=== PATIENT | male | born 1970 | race Caucasian/White ===

== ENCOUNTER 2019-02-13 08:00 | Inpatient (IN) ==
[2019-02-13] MEDS ORDERED: DEXTROSE 50% 25 GM/50 ML VIAL IV PRN (14:29)
[2019-02-13] MEDS ORDERED: GLUCAGON 1 MG VIAL IM PRN ×2 (14:29)
[2019-02-13] MEDS ORDERED: DEXTROSE 10% 250 ML BAG IV PRN (14:29)
[2019-02-13] MEDS ORDERED: ASPIRIN CHEW 81 MG TABLET PO ONE (14:40)
[2019-02-13] MEDS ORDERED: CLORAZEPATE 3.75 MG TABLET PO PRN (14:42)
[2019-02-13] MEDS ORDERED: ZALEPLON 5 MG CAPSULE PO PRN (14:42)
[2019-02-13] MEDS: ATORVASTATIN 80 MG TABLET PO SCH (21:57)
[2019-02-13] MEDS: carvediloL 3.125 MG TABLET PO SCH (21:57)
[2019-02-13] MEDS ORDERED: oxyCODONE/ACETAMINOPHEN 5-325 MG TABLET PO PRN (22:08)
[2019-02-13] MEDS: ACETAMINOPHEN 325 MG TABLET PO PRN (22:30)
[2019-02-14 05:06] LABS: Basophils # 0.1 10*3/uL (0.0-0.2); Basophils % 1.1 % (0.0-0.8); Eosinophils # 0.2 10*3/uL (0.0-0.87); Eosinophils % 3.4 % (0.00-10.9); Hematocrit 42.5 VOL% (42.0-52.0); Hemoglobin 14.3 GM/DL (14.0-18.0); Immature Granulocytes % 0.3 %; Immature Granulocytes Absolute 0.02 #; Lymphocytes # 2.2 10*3/uL (1.4-4.0); Lymphocytes % 31.9 % (21.2-54.2); Mean Corpuscular HGB Conc 33.6 GM/DL (32-36); Mean Corpuscular Volume 89.5 FL (87-102); Mean Platelet Volume 9.9 FL (9.6-12.0); Neutrophils % 51.3 % (38.7-73.9); Platelet Count 229 T/CUMM (130-400); Red Blood Count 4.75 MC/CUMM (3.8-5.5); Red Cell Distribution Width 12.1 % (9.3-17.3)
[2019-02-14 05:09] LABS: ABG Base Excess -0.3 MMOL/L (-2.5-2.5); ABG HCO3 24.1 MMOL/L (20-26); ABG Oxygen Saturation 91.9 % (95-100); ABG PCO2 38.9 MM HG (35-48); ABG TCO2 25.3 MMOL/L (23-27); Allen Test Positive; Pt O2 Delivery Device Room Air
[2019-02-14 05:49] LABS: Albumin 3.6 G/DL (3.4-5.0); Bilirubin,Total 0.9 MG/DL (0.2-1.0); Calcium 9.2 MG/DL (8.5-10.1); Total Protein 6.6 G/DL (6.4-8.3)
[2019-02-14] MEDS: ISOSORBIDE MONONITRATE 30 MG TABLET PO SCH (09:31)
[2019-02-14] MEDS: carvediloL 3.125 MG TABLET PO SCH ×2 (09:31→16:54)
[2019-02-14] MEDS: ACETAMINOPHEN 325 MG TABLET PO PRN (13:55)
[2019-02-14] MEDS: ATORVASTATIN 80 MG TABLET PO SCH (21:27)
[2019-02-15] MEDS: carvediloL 3.125 MG TABLET PO SCH ×2 (08:31→16:50)
[2019-02-15] MEDS: ISOSORBIDE MONONITRATE 30 MG TABLET PO SCH (08:31)
[2019-02-15] MEDS: ATORVASTATIN 80 MG TABLET PO SCH (21:34)
[2019-02-16] MEDS: ISOSORBIDE MONONITRATE 30 MG TABLET PO SCH (08:41)
[2019-02-16] MEDS: carvediloL 3.125 MG TABLET PO SCH ×2 (08:41→17:10)
[2019-02-16] MEDS: ATORVASTATIN 80 MG TABLET PO SCH (20:50)
[2019-02-17] MEDS ORDERED: FAMOTIDINE 20 MG TABLET PO ONE (06:00)
[2019-02-17] MEDS: carvediloL 3.125 MG TABLET PO SCH ×2 (09:42→17:20)
[2019-02-17] MEDS: CHLORHEXIDINE 0.12% ORAL RINSE 60 ML BOTTLE SWISH/SPIT SCH ×2 (09:42→21:52)
[2019-02-17] MEDS: ISOSORBIDE MONONITRATE 30 MG TABLET PO SCH (09:42)
[2019-02-17] MEDS: CHLORHEXIDINE 4% SOLN 118 ML BOTTLE TOP SCH ×2 (14:47→21:46)
[2019-02-17] MEDS ORDERED: ALPRAZolam 0.25 MG TABLET PO PRN (16:25)
[2019-02-17] MEDS: ATORVASTATIN 80 MG TABLET PO SCH (21:46)
[2019-02-17] MEDS: ACETAMINOPHEN 325 MG TABLET PO PRN (23:00)
[2019-02-18] MEDS ORDERED: VANCOMYCIN 500 MG VIAL ONE (04:24)
[2019-02-18] MEDS ORDERED: PAPAVERINE 60 MG/2 ML VIAL ONE (04:24)
[2019-02-18] MEDS ORDERED: VANCOMYCIN 1,000 MG VIAL ONE (04:24)
[2019-02-18] MEDS: CHLORHEXIDINE 4% SOLN 118 ML BOTTLE TOP SCH (04:30)
[2019-02-18] MEDS ORDERED: CALCIUM CHLORIDE 1,000 MG/10 ML VIAL IV ONE (05:50)
[2019-02-18] MEDS ORDERED: MIDAZOLAM 10 MG/2 ML VIAL ONE (05:50)
[2019-02-18] MEDS ORDERED: SUFentanil 250 MCG/5 ML AMP ONE (05:50)
[2019-02-18] MEDS ORDERED: AMINOCAPROIC ACID 5,000 MG/20 ML VIAL ONE (05:51)
[2019-02-18] MEDS ORDERED: VECURONIUM 10 MG VIAL IV ONE (05:51)
[2019-02-18] MEDS ORDERED: MINERAL OIL/PETROLATUM OPH OINT 3.5 GM TUBE ONE (05:51)
[2019-02-18] MEDS ORDERED: DIAZEPAM 5 MG TABLET PO ONE (06:00)
[2019-02-18] MEDS ORDERED: CEFUROXIME INJ 1,500 MG in SYRINGE 1 EACH IV ONE (06:30)
[2019-02-18] MEDS ORDERED: NITROPRUSSIDE 50 MG/2 ML VIAL ONE (07:29)
[2019-02-18] MEDS ORDERED: SODIUM BICARBONATE 50 MEQ/50 ML VIAL IV ONE ×2 (07:32→11:24)
[2019-02-18] MEDS ORDERED: CALCIUM CHLORIDE 1,000 MG/10 ML SYRINGE IV ONE (07:32)
[2019-02-18] MEDS ORDERED: ATROPINE 1 MG/10 ML SYRINGE ONE (07:33)
[2019-02-18] MEDS ORDERED: EPINEPHrine 1 MG/10 ML SYRINGE ONE (07:33)
[2019-02-18] MEDS ORDERED: LIDOCAINE 100 MG/5 ML SYRINGE ONE (07:33)
[2019-02-18] MEDS ORDERED: PHENYLEPHRINE DRIP 40 MG/250 ML PREMIX IV ONE (07:35)
[2019-02-18 07:42] LABS: ABG Base Excess -1.6 MMOL/L (-2.5-2.5); ABG HCO3 22.5 MMOL/L (20-26); ABG Oxygen Saturation 99.2 % (95-100); ABG PCO2 36.3 MM HG (35-48); ABG PO2 438.9 MM HG (80-95); ABG TCO2 23.6 MMOL/L (23-27); Glucose Heart Surgery 108 MG/DL (74-106); Hemoglobin Heart Surgery 14.6 G/DL (14.0-18.0); Ionized Calcium Arterial 1.18 MMOL/L (1.21-1.46); PCO2 Patient Temp Arterial 36.3 MMHG; PO2 Patient Temp Arterial 438.9 MM HG; Patient Temperature 37 CELCIUS; Sodium Heart/CVR 139 MMOL/L (135-145)
[2019-02-18] MEDS ORDERED: POTASSIUM CHLORIDE RIDER 100 ML IV ONE (08:14)
[2019-02-18] MEDS ORDERED: ALBUMIN 5% 12.5 GM/250 ML VIAL IV ONE (08:14)
[2019-02-18 08:16] LABS: Apearance,Urine CLEAR (Clear); Bacteria,Urine Occasional /HPF (Few); Bilirubin,Urine Negative (Negative); Blood, Urine Negative (Negative); Glucose,Urine (UA) Negative (Negative); Ketones,Urine Negative (Negative); Mucus,Urine Occasional /LPF (Occasional); Nitrite,Urine Negative (Negative); Protein,Urine Negative; RBC,Urine 2 /HPF (0-4); Squamous Epithelial Cell,Urine Occasional /HPF (0-10); Urine Color Yellow (Yellow); Urine Specific Gravity 1.025 (1.001-1.035); Urine Urobilinogen < 2.0 EU/DL (0.2-1.0); WBC,Urine <1 /HPF (0-6)
[2019-02-18 09:12] LABS: Hematocrit Heart Surgery 30.2 PERCENT (42-52); Hemoglobin Heart Surgery 9.8 G/DL (14.0-18.0); PCO2 Patient Temp Venous 43.4 MM HG; PH Patient Temp Venous 7.355; PO2 Patient Temp Venous 46.1 MM HG; Potassium Heart/CVR 5.8 MMOL/L (3.5-5.1); VBG Base Excess -1.2 MEQ/L (0-4); VBG HCO3 23.2 MEQ/L (24-28); VBG Oxygen Saturation 86.6 %; VBG PCO2 47.9 MMHG (41-51); VBG PH 7.327; VBG PO2 52.8 MMHG (17-40)
[2019-02-18 09:43] LABS: Hematocrit Heart Surgery 35.4 PERCENT (42-52); Hemoglobin Heart Surgery 11.5 G/DL (14.0-18.0); PCO2 Patient Temp Venous 35.9 MM HG; PH Patient Temp Venous 7.424; PO2 Patient Temp Venous 39.1 MM HG; Potassium Heart/CVR 5.6 MMOL/L (3.5-5.1); VBG Base Excess -0.6 MEQ/L (0-4); VBG HCO3 23.7 MEQ/L (24-28); VBG Oxygen Saturation 84.8 %; VBG PCO2 41.5 MMHG (41-51); VBG PH 7.38; VBG PO2 48.1 MMHG (17-40)
[2019-02-18 10:16] LABS: Hematocrit Heart Surgery 38.7 PERCENT (42-52); Hemoglobin Heart Surgery 12.6 G/DL (14.0-18.0); PCO2 Patient Temp Venous 32.8 MM HG; PH Patient Temp Venous 7.456; PO2 Patient Temp Venous 37.2 MM HG; Potassium Heart/CVR 5.2 MMOL/L (3.5-5.1); VBG Base Excess -0.1 MEQ/L (0-4); VBG Oxygen Saturation 83.8 %; VBG PH 7.412; VBG PO2 45.8 MMHG (17-40)
[2019-02-18 10:47] LABS: Hemoglobin Heart Surgery 12.4 G/DL (14.0-18.0); PCO2 Patient Temp Venous 35.5 MM HG; PH Patient Temp Venous 7.423; PO2 Patient Temp Venous 46.3 MM HG; Potassium Heart/CVR 4.7 MMOL/L (3.5-5.1); VBG Base Excess -1.3 MEQ/L (0-4); VBG HCO3 22.7 MEQ/L (24-28); VBG Oxygen Saturation 83.1 %; VBG PCO2 35.5 MMHG (41-51); VBG PH 7.423; VBG PO2 46.3 MMHG (17-40)
[2019-02-18] MEDS ORDERED: MANNITOL 100 GM/500 ML BAG IV ONE (11:23)
[2019-02-18] MEDS ORDERED: PROTAMINE SULFATE 250 MG/25 ML VIAL IV ONE (11:24)
[2019-02-18] MEDS ORDERED: MAGNESIUM SULFATE 5 GM/10 ML VIAL IV ONE (11:24)
[2019-02-18] MEDS ORDERED: ALBUMIN 25% 25 GM/100 ML VIAL IV ONE (11:24)
[2019-02-18] MEDS ORDERED: methylPREDNISolone SOD SUC 1,000 MG/8 ML VIAL ONE (11:24)
[2019-02-18] MEDS ORDERED: LIDOCAINE 2% 5 ML VIAL ONE ×2 (11:24→13:15)
[2019-02-18] MEDS ORDERED: FUROSEMIDE 20 MG/2 ML VIAL ONE (11:24)
[2019-02-18] MEDS ORDERED: DEXTROSE 5% KCL 20 MEQ 20 MEQ/1,000 ML BAG IV ONE (11:24)
[2019-02-18] MEDS ORDERED: HEPARIN 10,000 UNIT/10 ML VIAL ONE (11:24)
[2019-02-18] MEDS ORDERED: PROTAMINE SULFATE 50 MG/5 ML VIAL IV ONE (11:25)
[2019-02-18 11:41] LABS: ABG Base Excess -1.7 MMOL/L (-2.5-2.5); ABG Oxygen Saturation 98.9 % (95-100); ABG PCO2 33.9 MM HG (35-48); Glucose Heart Surgery 140 MG/DL (74-106); Hemoglobin Heart Surgery 12.1 G/DL (14.0-18.0); Ionized Calcium Arterial 1.28 MMOL/L (1.21-1.46); PCO2 Patient Temp Arterial 33.9 MMHG; Patient Temperature 37 CELCIUS; Potassium Heart/CVR 3.6 MMOL/L (3.5-5.1); Sodium Heart/CVR 138 MMOL/L (135-145)
[2019-02-18] MEDS ORDERED: MORPHINE 10 MG/1 ML VIAL IV PRN (12:31)
[2019-02-18] MEDS ORDERED: ACETAMINOPHEN 650 MG SUPP RECTAL PRN (12:31)
[2019-02-18] MEDS ORDERED: MAGNESIUM SULF RIDER 4 GM in PREMIX 1 EACH IV PRN (12:31)
[2019-02-18] MEDS ORDERED: LACTATED RINGERS 250 ML IV PRN (12:31)
[2019-02-18] MEDS ORDERED: VECURONIUM 10 MG VIAL IV PRN ×2 (12:31)
[2019-02-18] MEDS ORDERED: SODIUM CHLORIDE 0.45% 1,000 ML IV SCH ×2 (12:31)
[2019-02-18] MEDS ORDERED: PHENYLEPHRINE DRIP 40 MG/250 ML PREMIX IV PRN (12:31)
[2019-02-18] MEDS ORDERED: ONDANSETRON 4 MG/2 ML VIAL IV PRN (12:31)
[2019-02-18] MEDS ORDERED: MAGNESIUM SULF RIDER 2 GM in PREMIX 1 EACH IV PRN (12:31)
[2019-02-18] MEDS ORDERED: NITROPRUSSIDE 100 MG in DEXTROSE 5% 250 ML IV PRN (12:31)
[2019-02-18] MEDS ORDERED: CALCIUM CHLORIDE 1,000 MG/10 ML SYRINGE IV PRN (12:31)
[2019-02-18] MEDS ORDERED: DEXTROSE 10% 250 ML BAG IV PRN ×2 (12:31)
[2019-02-18] MEDS ORDERED: MORPHINE 4 MG/1 ML VIAL IV PRN (12:31)
[2019-02-18] MEDS ORDERED: INSULIN REGULAR 100 UNIT/ML IV ONE (12:31)
[2019-02-18] MEDS: LACTATED RINGERS 1,000 ML IV PRN ×3 (12:35→15:34)
[2019-02-18 12:50] LABS: ABG Base Excess -2.9 MMOL/L (-2.5-2.5); ABG HCO3 22.3 MMOL/L (20-26); ABG Oxygen Saturation 95.9 % (95-100); ABG PCO2 40.3 MM HG (35-48); ABG PH 7.361 (7.35-7.45); ABG PO2 88.6 MM HG (80-95); ABG TCO2 23.5 MMOL/L (23-27); Glucose Heart Surgery 114 MG/DL (74-106); Hemoglobin Heart Surgery 12.5 G/DL (14.0-18.0); Potassium Heart/CVR 3.5 MMOL/L (3.5-5.1)
[2019-02-18 12:51] LABS: Basophils # 0.1 10*3/uL (0.0-0.2); Basophils % 0.3 % (0.0-0.8); Eosinophils # 0.1 10*3/uL (0.0-0.87); Eosinophils % 0.4 % (0.00-10.9); Hematocrit 35.1 VOL% (42.0-52.0); Hemoglobin 11.9 GM/DL (14.0-18.0); Immature Granulocytes % 0.9 %; Immature Granulocytes Absolute 0.14 #; Lymphocytes # 1.7 10*3/uL (1.4-4.0); Lymphocytes % 10.4 % (21.2-54.2); Mean Corpuscular HGB Conc 33.9 GM/DL (32-36); Mean Corpuscular Volume 90.5 FL (87-102); Mean Platelet Volume 10.2 FL (9.6-12.0); Monocytes % 7.4 % (1.7-12.7); Neutrophils % 80.6 % (38.7-73.9); Platelet Count 182 T/CUMM (130-400); Red Blood Count 3.88 MC/CUMM (3.8-5.5); Red Cell Distribution Width 12.1 % (9.3-17.3); White Blood Count 15.9 T/CUMM (4-12)
[2019-02-18] MEDS: KETOROLAC 30 MG/1 ML VIAL IV SCH ×2 (12:58→18:24)
[2019-02-18 13:00] LABS: INR 1.2; PT Patient Result 12.7 SECS (9.6-12.2); Partial Thromboplastin Time 25.9 SECS (20.8-36.0)
[2019-02-18] MEDS: INSULIN REGULAR DRIP 100 ML IV SCH ×2 (13:07→16:57)
[2019-02-18] MEDS: POTASSIUM CHLORIDE RIDER 20 MEQ in PREMIX 1 EACH IV PRN ×3 (13:11→21:52)
[2019-02-18] MEDS ORDERED: SEVOFLURANE 1 UNIT/15 MINUTE INH ONE (13:15)
[2019-02-18] MEDS ORDERED: AMIODARONE 150 MG/3 ML VIAL ONE (13:15)
[2019-02-18] MEDS ORDERED: PHENYLEPHRINE DRIP 20 MG/250 ML PREMIX IV ONE (13:15)
[2019-02-18] MEDS ORDERED: HEPARIN/NACL 0.9% 2 UNITS/ML 500 ML IV ONE (13:15)
[2019-02-18] MEDS ORDERED: SODIUM CHLORIDE 0.9% 1,000 ML IV ONE (13:16)
[2019-02-18] MEDS ORDERED: ETOMIDATE 40 MG/20 ML VIAL IV ONE (13:16)
[2019-02-18] MEDS ORDERED: SODIUM CHLORIDE 0.9% 250 ML IV ONE (13:16)
[2019-02-18] MEDS ORDERED: ESMOLOL 100 MG/10 ML VIAL IV ONE (13:16)
[2019-02-18] MEDS ORDERED: NITROGLYCERIN DRIP 50 MG/250 ML BOTTLE IV ONE (13:16)
[2019-02-18 13:34] LABS: Albumin 3.2 G/DL (3.4-5.0); Bilirubin,Total 0.6 MG/DL (0.2-1.0); Osmolality,Calculated 293.4 MOS/KG (273-304); Total Protein 5.1 G/DL (6.4-8.3)
[2019-02-18 13:36] LABS: CKMB % 6.4 %
[2019-02-18 13:51] LABS: Troponin I 7.59 NG/ML (0.00-0.045)
[2019-02-18] MEDS: POTASSIUM CHLORIDE RIDER 10 MEQ in PREMIX 1 EACH IV PRN (13:52)
[2019-02-18] MEDS: ALBUMIN 5% 12.5 GM in PREMIX 1 EACH IV PRN ×5 (14:39→18:01)
[2019-02-18 15:03] LABS: ABG Base Excess -1.9 MMOL/L (-2.5-2.5); ABG HCO3 22.7 MMOL/L (20-26); ABG Oxygen Saturation 94.9 % (95-100); ABG PCO2 48.8 MM HG (35-48); ABG PH 7.314 (7.35-7.45); ABG TCO2 22.2 MMOL/L (23-27); Glucose Heart Surgery 166 MG/DL (74-106); Hematocrit Heart Surgery 36.9 PERCENT (42-52); Potassium Heart/CVR 4.6 MMOL/L (3.5-5.1)
[2019-02-18] MEDS ORDERED: AMIODARONE INJ 50 MG in DEXTROSE 5% 100 ML IV ONE (15:13)
[2019-02-18] MEDS ORDERED: AMIODARONE INJ 450 MG in DEXTROSE 5% 241 ML IV SCH (15:30)
[2019-02-18 16:25] LABS: ABG Base Excess -2.4 MMOL/L (-2.5-2.5); ABG HCO3 22.4 MMOL/L (20-26); ABG Oxygen Saturation 98.3 % (95-100); ABG PCO2 51.1 MM HG (35-48); ABG PH 7.292 (7.35-7.45); ABG TCO2 22.4 MMOL/L (23-27); Glucose Heart Surgery 176 MG/DL (74-106); Hematocrit Heart Surgery 34.8 PERCENT (42-52); Hemoglobin Heart Surgery 11.3 G/DL (14.0-18.0); Potassium Heart/CVR 4.5 MMOL/L (3.5-5.1)
[2019-02-18] MEDS: MIDAZOLAM 2 MG/2 ML VIAL IV PRN ×2 (16:41→18:40)
[2019-02-18 16:54] LABS: ABG Base Excess -2.4 MMOL/L (-2.5-2.5); ABG HCO3 22.4 MMOL/L (20-26); ABG PCO2 46.3 MM HG (35-48); ABG PH 7.321 (7.35-7.45); ABG TCO2 21.5 MMOL/L (23-27); Glucose Heart Surgery 181 MG/DL (74-106); Hemoglobin Heart Surgery 11.7 G/DL (14.0-18.0); Potassium Heart/CVR 4.6 MMOL/L (3.5-5.1)
[2019-02-18] MEDS: INSULIN REGULAR 100 UNIT/ML IV PRN ×2 (16:54→20:14)
[2019-02-18 17:39] LABS: ABG Base Excess -2.2 MMOL/L (-2.5-2.5); ABG HCO3 22.6 MMOL/L (20-26); ABG Oxygen Saturation 99.4 % (95-100); ABG PCO2 41.1 MM HG (35-48); ABG PH 7.358 (7.35-7.45); ABG TCO2 20.8 MMOL/L (23-27); Glucose Heart Surgery 168 MG/DL (74-106); Hematocrit Heart Surgery 34.1 PERCENT (42-52); Potassium Heart/CVR 4.2 MMOL/L (3.5-5.1)
[2019-02-18] MEDS: CEFUROXIME INJ 1,500 MG in SYRINGE 1 EACH IV SCH (19:33)
[2019-02-18 20:25] LABS: ABG Base Excess -1.7 MMOL/L (-2.5-2.5); ABG Oxygen Saturation 99.2 % (95-100); ABG PCO2 33.1 MM HG (35-48); ABG PH 7.429 (7.35-7.45); ABG TCO2 19.6 MMOL/L (23-27); Glucose Heart Surgery 174 MG/DL (74-106); Hematocrit Heart Surgery 34.1 PERCENT (42-52); Potassium Heart/CVR 4.2 MMOL/L (3.5-5.1)
[2019-02-18] MEDS: MIDAZOLAM 10 MG/2 ML VIAL IV PRN ×2 (20:38→23:00)
[2019-02-18 20:57] LABS: CKMB % 5.1 %
[2019-02-18 20:58] LABS: Troponin I 6.13 NG/ML (0.00-0.045)
[2019-02-18] MEDS ORDERED: FUROSEMIDE 40 MG/4 ML VIAL IV ONE (21:38)
[2019-02-18] MEDS: CHLORHEXIDINE 0.12% ORAL RINSE 60 ML BOTTLE SWISH/SPIT SCH (21:42)
[2019-02-18] MEDS: AMIODARONE INJ 450 MG in DEXTROSE 5% 241 ML IV SCH (21:48)
[2019-02-19] MEDS: KETOROLAC 30 MG/1 ML VIAL IV SCH ×4 (01:14→17:39)
[2019-02-19 03:25] LABS: Basophils % 0.1 % (0.0-0.8); Hematocrit 33.1 VOL% (42.0-52.0); Hemoglobin 11.2 GM/DL (14.0-18.0); Immature Granulocytes % 0.6 %; Immature Granulocytes Absolute 0.12 #; Lymphocytes # 1.6 10*3/uL (1.4-4.0); Lymphocytes % 7.3 % (21.2-54.2); Mean Corpuscular HGB Conc 33.8 GM/DL (32-36); Mean Corpuscular Volume 89.7 FL (87-102); Mean Platelet Volume 10.2 FL (9.6-12.0); Monocytes % 4.9 % (1.7-12.7); Neutrophils % 87.1 % (38.7-73.9); Platelet Count 217 T/CUMM (130-400); Red Blood Count 3.69 MC/CUMM (3.8-5.5); Red Cell Distribution Width 12.3 % (9.3-17.3); White Blood Count 21.3 T/CUMM (4-12)
[2019-02-19 03:26] LABS: ABG Base Excess -1.5 MMOL/L (-2.5-2.5); ABG HCO3 23.2 MMOL/L (20-26); ABG Oxygen Saturation 98.8 % (95-100); ABG PCO2 40.1 MM HG (35-48); ABG PH 7.377 (7.35-7.45); Glucose Heart Surgery 138 MG/DL (74-106); Hematocrit Heart Surgery 35.7 PERCENT (42-52); Hemoglobin Heart Surgery 11.6 G/DL (14.0-18.0); Potassium Heart/CVR 3.7 MMOL/L (3.5-5.1)
[2019-02-19] MEDS: POTASSIUM CHLORIDE RIDER 20 MEQ in PREMIX 1 EACH IV PRN (03:30)
[2019-02-19 03:44] LABS: Albumin 3.9 G/DL (3.4-5.0); Bilirubin,Direct 0.17 MG/DL (0.0-0.20); Bilirubin,Total 0.7 MG/DL (0.2-1.0); CKMB % 4.6 %; Calcium 8.2 MG/DL (8.5-10.1); Osmolality,Calculated 289.7 MOS/KG (273-304); Total Protein 6.2 G/DL (6.4-8.3)
[2019-02-19 03:46] LABS: Troponin I 5.19 NG/ML (0.00-0.045)
[2019-02-19 04:07] LABS: Anisocytosis 1+; Lymphocytes 8 % (20-55); Platelet Estimate Adequate; Segmented Neutrophils 86 % (50-85); Total Cells Counted 100
[2019-02-19] MEDS: POTASSIUM CHLORIDE RIDER 10 MEQ in PREMIX 1 EACH IV PRN (04:40)
[2019-02-19 07:30] LABS: ABG Base Excess -1.7 MMOL/L (-2.5-2.5); ABG HCO3 22.8 MMOL/L (20-26); ABG Oxygen Saturation 90.9 % (95-100); ABG PCO2 41.8 MM HG (35-48); ABG PH 7.361 (7.35-7.45); ABG PO2 60.8 MM HG (80-95); ABG TCO2 21.2 MMOL/L (23-27); Glucose Heart Surgery 141 MG/DL (74-106); Hematocrit Heart Surgery 35.4 PERCENT (42-52); Hemoglobin Heart Surgery 11.5 G/DL (14.0-18.0); Potassium Heart/CVR 4.2 MMOL/L (3.5-5.1)
[2019-02-19] MEDS: CEFUROXIME INJ 1,500 MG in SYRINGE 1 EACH IV SCH (08:41)
[2019-02-19] MEDS: CHLORHEXIDINE 0.12% ORAL RINSE 60 ML BOTTLE SWISH/SPIT SCH ×2 (08:58→21:19)
[2019-02-19] MEDS ORDERED: ASPIRIN CHEW 81 MG TABLET PO ONE (09:11)
[2019-02-19] MEDS ORDERED: KETOROLAC 30 MG/1 ML VIAL IV SCH (09:48)
[2019-02-19] MEDS ORDERED: ALUMINUM/MAGNES/SIMETH MAX STR 30 ML UDCUP PO PRN (09:48)
[2019-02-19] MEDS ORDERED: SODIUM CHLOR 0.45% KCL 20 MEQ 20 MEQ/1,000 ML BAG IV SCH (09:48)
[2019-02-19] MEDS ORDERED: POTASSIUM CHLORIDE 20 MEQ TABLET PO PRN (09:48)
[2019-02-19] MEDS ORDERED: MAGNESIUM SULF RIDER 4 GM in PREMIX 1 EACH IV PRN (09:48)
[2019-02-19] MEDS ORDERED: MAGNESIUM HYDROXIDE SUSP 30 ML UDCUP PO PRN (09:48)
[2019-02-19] MEDS ORDERED: DEXTROSE 50% 25 GM/50 ML VIAL IV PRN ×2 (09:48)
[2019-02-19] MEDS ORDERED: ONDANSETRON 4 MG/2 ML VIAL IV PRN (09:48)
[2019-02-19] MEDS ORDERED: MAGNESIUM SULF RIDER 2 GM in PREMIX 1 EACH IV PRN (09:48)
[2019-02-19] MEDS ORDERED: GLUCAGON 1 MG VIAL IM PRN ×2 (09:48)
[2019-02-19] MEDS ORDERED: INSULIN REGULAR 100 UNIT/ML SUBCUT SCH (12:00)
[2019-02-19] MEDS: CHLORHEXIDINE 4% SOLN 118 ML BOTTLE TOP SCH (15:03)
[2019-02-19] MEDS: AMIODARONE INJ 450 MG in DEXTROSE 5% 241 ML IV SCH (15:34)
[2019-02-19] MEDS: carvediloL 3.125 MG TABLET PO SCH (16:32)
[2019-02-19] MEDS ORDERED: CEFUROXIME INJ 1,500 MG in SYRINGE 1 EACH IV ONE (20:20)
[2019-02-19] MEDS: ATORVASTATIN 80 MG TABLET PO SCH (21:18)
[2019-02-19] MEDS: oxyCODONE/ACETAMINOPHEN 5-325 MG TABLET PO PRN (21:20)
[2019-02-20] MEDS: AMIODARONE INJ 450 MG in DEXTROSE 5% 241 ML IV SCH (03:30)
[2019-02-20] MEDS: oxyCODONE/ACETAMINOPHEN 5-325 MG TABLET PO PRN ×2 (04:36→11:19)
[2019-02-20 05:47] LABS: Basophils % 0.1 % (0.0-0.8); Hematocrit 30.8 VOL% (42.0-52.0); Hemoglobin 10.2 GM/DL (14.0-18.0); Immature Granulocytes % 1.1 %; Immature Granulocytes Absolute 0.19 #; Lymphocytes # 1.2 10*3/uL (1.4-4.0); Lymphocytes % 6.9 % (21.2-54.2); Mean Corpuscular HGB Conc 33.1 GM/DL (32-36); Mean Corpuscular Volume 91.9 FL (87-102); Mean Platelet Volume 10.9 FL (9.6-12.0); Monocytes % 9.3 % (1.7-12.7); Neutrophils % 82.6 % (38.7-73.9); Platelet Count 193 T/CUMM (130-400); Red Blood Count 3.35 MC/CUMM (3.8-5.5); Red Cell Distribution Width 12.8 % (9.3-17.3); White Blood Count 16.7 T/CUMM (4-12)
[2019-02-20] MEDS ORDERED: FUROSEMIDE 40 MG/4 ML VIAL IV ONE (06:00)
[2019-02-20 06:03] LABS: Alanine Aminotransferase 38 U/L (16-61); Albumin 3.3 G/DL (3.4-5.0); Alkaline Phosphatase 57 U/L (45-117); Aspartate Amino Transferase 33 U/L (0-37); Bilirubin,Direct < 0.100 MG/DL (0.0-0.20); Bilirubin,Indirect 0.3 MG/DL (0.0-1.0); Blood Urea Nitrogen 21 MG/DL (7-18); Calcium 8.4 MG/DL (8.5-10.1); Estimated Glom Filtration Rate 125 ML/MIN; Glucose 171 MG/DL (74-106); Osmolality,Calculated 285.4 MOS/KG (273-304); Total Protein 5.6 G/DL (6.4-8.3)
[2019-02-20] MEDS: ALBUTEROL/IPRATROPIUM 3 ML NEB RESP TX SCH ×3 (07:47→18:58)
[2019-02-20] MEDS: FERROUS SULFATE 325 MG TABLET PO SCH (09:29)
[2019-02-20] MEDS: ISOSORBIDE MONONITRATE 30 MG TABLET PO SCH (09:29)
[2019-02-20] MEDS: CHLORHEXIDINE 0.12% ORAL RINSE 60 ML BOTTLE SWISH/SPIT SCH ×2 (09:29→20:28)
[2019-02-20] MEDS: carvediloL 3.125 MG TABLET PO SCH ×2 (09:29→16:41)
[2019-02-20] MEDS: AMIODARONE 200 MG TABLET PO SCH ×2 (09:29→20:27)
[2019-02-20] MEDS: DOCUSATE SODIUM 100 MG CAPSULE PO SCH (09:30)
[2019-02-20] MEDS: PANTOPRAZOLE 40 MG TABLET PO SCH (09:30)
[2019-02-20] MEDS ORDERED: CLORAZEPATE 3.75 MG TABLET PO PRN (14:31)
[2019-02-20] MEDS: ATORVASTATIN 80 MG TABLET PO SCH (20:27)
[2019-02-20] MEDS: ZALEPLON 5 MG CAPSULE PO PRN (20:28)
[2019-02-20] MEDS: ACETAMINOPHEN 325 MG TABLET PO PRN (20:31)
[2019-02-21] MEDS: ALBUTEROL/IPRATROPIUM 3 ML NEB RESP TX SCH ×4 (01:20→21:34)
[2019-02-21 05:35] LABS: Basophils % 0.1 % (0.0-0.8); Hematocrit 32.5 VOL% (42.0-52.0); Hemoglobin 10.9 GM/DL (14.0-18.0); Immature Granulocytes Absolute 0.19 #; Lymphocytes # 2.5 10*3/uL (1.4-4.0); Lymphocytes % 13.7 % (21.2-54.2); Mean Corpuscular HGB Conc 33.5 GM/DL (32-36); Mean Corpuscular Volume 90.8 FL (87-102); Mean Platelet Volume 10.9 FL (9.6-12.0); Monocytes % 10.4 % (1.7-12.7); Neutrophils % 74.8 % (38.7-73.9); Platelet Count 223 T/CUMM (130-400); Red Blood Count 3.58 MC/CUMM (3.8-5.5); Red Cell Distribution Width 12.9 % (9.3-17.3); White Blood Count 18.1 T/CUMM (4-12)
[2019-02-21 06:14] LABS: Alanine Aminotransferase 37 U/L (16-61); Albumin 3.4 G/DL (3.4-5.0); Alkaline Phosphatase 66 U/L (45-117); Aspartate Amino Transferase 28 U/L (0-37); Bilirubin,Indirect 0.6 MG/DL (0.0-1.0); Blood Urea Nitrogen 22 MG/DL (7-18); Calcium 8.4 MG/DL (8.5-10.1); Estimated Glom Filtration Rate 110 ML/MIN; Glucose 114 MG/DL (74-106); Osmolality,Calculated 282.4 MOS/KG (273-304); Total Protein 6.1 G/DL (6.4-8.3)
[2019-02-21] MEDS: AMIODARONE 200 MG TABLET PO SCH ×2 (09:19→20:04)
[2019-02-21] MEDS: FERROUS SULFATE 325 MG TABLET PO SCH (09:19)
[2019-02-21] MEDS: carvediloL 3.125 MG TABLET PO SCH ×2 (09:19→16:44)
[2019-02-21] MEDS: ISOSORBIDE MONONITRATE 30 MG TABLET PO SCH (09:20)
[2019-02-21] MEDS: CHLORHEXIDINE 0.12% ORAL RINSE 60 ML BOTTLE SWISH/SPIT SCH ×2 (09:20→20:04)
[2019-02-21] MEDS: DOCUSATE SODIUM 100 MG CAPSULE PO SCH (09:20)
[2019-02-21] MEDS: PANTOPRAZOLE 40 MG TABLET PO SCH (09:20)
[2019-02-21] MEDS: oxyCODONE/ACETAMINOPHEN 5-325 MG TABLET PO PRN (13:29)
[2019-02-21] MEDS: ACETAMINOPHEN 325 MG TABLET PO PRN (20:04)
[2019-02-21] MEDS: ATORVASTATIN 80 MG TABLET PO SCH (20:05)
[2019-02-21] MEDS: ZALEPLON 5 MG CAPSULE PO PRN (21:40)
[2019-02-22] MEDS: ZALEPLON 5 MG CAPSULE PO PRN (00:05)
[2019-02-22] MEDS: ALBUTEROL/IPRATROPIUM 3 ML NEB RESP TX SCH ×3 (01:30→13:57)
[2019-02-22] MEDS: oxyCODONE/ACETAMINOPHEN 5-325 MG TABLET PO PRN (02:12)
[2019-02-22] MEDS ORDERED: LACTULOSE 20 GM/30 ML UDCUP PO PRN (08:08)
[2019-02-22] MEDS: FERROUS SULFATE 325 MG TABLET PO SCH (09:18)
[2019-02-22] MEDS: CHLORHEXIDINE 0.12% ORAL RINSE 60 ML BOTTLE SWISH/SPIT SCH ×2 (09:18→21:37)
[2019-02-22] MEDS: DOCUSATE SODIUM 100 MG CAPSULE PO SCH (09:18)
[2019-02-22] MEDS: ISOSORBIDE MONONITRATE 30 MG TABLET PO SCH (09:18)
[2019-02-22] MEDS: AMIODARONE 200 MG TABLET PO SCH ×2 (09:18→21:36)
[2019-02-22] MEDS: carvediloL 6.25 MG TABLET PO SCH ×2 (09:18→16:52)
[2019-02-22] MEDS: PANTOPRAZOLE 40 MG TABLET PO SCH (09:18)
[2019-02-22] MEDS: ALPRAZolam 0.5 MG TABLET PO PRN ×2 (16:52→21:36)
[2019-02-22] MEDS: ACETAMINOPHEN 325 MG TABLET PO PRN (18:19)
[2019-02-22] MEDS: ATORVASTATIN 80 MG TABLET PO SCH (21:36)
[2019-02-23] MEDS: ALBUTEROL/IPRATROPIUM 3 ML NEB RESP TX SCH ×2 (02:48→08:47)
[2019-02-23 04:52] LABS: Basophils % 0.4 % (0.0-0.8); Eosinophils # 0.2 10*3/uL (0.0-0.87); Eosinophils % 1.9 % (0.00-10.9); Hematocrit 31.6 VOL% (42.0-52.0); Hemoglobin 10.7 GM/DL (14.0-18.0); Immature Granulocytes % 1.1 %; Immature Granulocytes Absolute 0.13 #; Lymphocytes # 2.7 10*3/uL (1.4-4.0); Lymphocytes % 23.7 % (21.2-54.2); Mean Corpuscular HGB Conc 33.9 GM/DL (32-36); Mean Corpuscular Volume 91.1 FL (87-102); Mean Platelet Volume 10.4 FL (9.6-12.0); Monocytes % 12.7 % (1.7-12.7); Neutrophils % 60.2 % (38.7-73.9); Platelet Count 249 T/CUMM (130-400); Red Blood Count 3.47 MC/CUMM (3.8-5.5); Red Cell Distribution Width 12.8 % (9.3-17.3); White Blood Count 11.3 T/CUMM (4-12)
[2019-02-23 05:26] LABS: Alanine Aminotransferase 31 U/L (16-61); Alkaline Phosphatase 67 U/L (45-117); Aspartate Amino Transferase 16 U/L (0-37); Bilirubin,Indirect 0.6 MG/DL (0.0-1.0); Blood Urea Nitrogen 21 MG/DL (7-18); Calcium 8.3 MG/DL (8.5-10.1); Estimated Glom Filtration Rate 125 ML/MIN; Glucose 103 MG/DL (74-106); Osmolality,Calculated 285.1 MOS/KG (273-304); Total Protein 5.8 G/DL (6.4-8.3)
[2019-02-23 08:03] VITALS: BP 120/76
[2019-02-23] MEDS ORDERED: ASPIRIN EC 81 MG TABLET PO SCH (09:00)
[2019-02-23] MEDS ORDERED: CLOPIDOGREL 75 MG TABLET PO SCH (09:00)
[2019-02-23] MEDS: carvediloL 6.25 MG TABLET PO SCH (09:32)
[2019-02-23] MEDS: PANTOPRAZOLE 40 MG TABLET PO SCH (09:32)
[2019-02-23] MEDS: DOCUSATE SODIUM 100 MG CAPSULE PO SCH (09:32)
[2019-02-23] MEDS: FERROUS SULFATE 325 MG TABLET PO SCH (09:32)
[2019-02-23] MEDS: ISOSORBIDE MONONITRATE 30 MG TABLET PO SCH (09:33)
[2019-02-23] MEDS: ACETAMINOPHEN 325 MG TABLET PO PRN (09:33)
[2019-02-23] MEDS: AMIODARONE 200 MG TABLET PO SCH (09:34)
[2019-02-23] MEDS: CHLORHEXIDINE 0.12% ORAL RINSE 60 ML BOTTLE SWISH/SPIT SCH (09:34)
== END 2019-02-23 11:25 | disposition home health service (06) | DRG 236 ==
LOC: N.TELEN 18:24 → N.CVR 02-18 12:00 → N.TELES 02-19 12:30